=== PATIENT | male | born 2000 | race Two or more races ===

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

== ENCOUNTER 2021-01-08 16:34 | Emergency (ER) | payer SELFPAY ==
[~2021-01-08] VITALS: Ht 170.2 cm; Wt 86.0 kg
[2021-01-08 17:55] VITALS: BP 132/84
[2021-01-08] MEDS ORDERED: NEOM10DR32 AD (18:29)
--- NOTE | 2021-01-08 18:29 | PHYS DOC ---
Past Medical History Past Medical History: Other Additional Past Medical Histor: BRADYCARDIA Past Surgical History: No Surgical History Smoking Status: Never Smoker Alcohol Use: None Drug Use: None General Adult EDM: Chief Complaint: EARACHE/EAR PAIN HPI: HPI: Patient is a 20 year old male who presents with has chronic right ear cauliflower ear that he is not been doing ears nose throat or surgeon for. But for the last 2 days he has had inner ear pain. He denies fever, nausea, vomiting, headache, dizziness, abdominal pain, neck pain, throat pain, nasal congestion. Denies any past medical history. Review of Systems: Review of Systems: Constitutional: Denies fever or chills. [] Eyes: Denies change in visual acuity. [] HENT: Denies nasal congestion or sore throat. + Right ear pain [] Respiratory: Denies cough or shortness of breath. [] Cardiovascular: Denies chest pain or edema. [] GI: Denies abdominal pain, nausea, vomiting, bloody stools or diarrhea. [] : Denies dysuria. [] Musculoskeletal: Denies back pain or joint pain. [] Integument: Denies rash. [] Neurologic: Denies headache, focal weakness or sensory changes. [] Endocrine: Denies polyuria or polydipsia. [] Lymphatic: Denies swollen glands. [] Psychiatric: Denies depression or anxiety. [] Heart Score: C/O Chest Pain: No Risk Factors: Risk Factors: DM, Current or recent (<one month) smoker, HTN, HLP, family history of CAD, obesity. Risk Scores: Score 0 - 3: 2.5% MACE over next 6 weeks - Discharge Home Score 4 - 6: 20.3% MACE over next 6 weeks - Admit for Clinical Observation Score 7 - 10: 72.7% MACE over next 6 weeks - Early Invasive Strategies Allergies: Allergies: Allergies Coded Allergies Type Severity Reaction Last Updated Verified diphenhydramine Allergy Intermediate RASH 01/08/21 Yes Physical Exam: PE: Constitutional: Well developed, well nourished, no acute distress, non-toxic appearance. [] HENT: Normocephalic, atraumatic, bilateral external ears normal, oropharynx moist, no oral exudates, nose normal. Right ear with chronic cauliflower ear but has otitis externa examination. Ear canal is very swollen. [] Eyes: PERRLA, EOMI, conjunctiva normal, no discharge. [] Neck: Normal range of motion, no tenderness, supple, no stridor. [] Cardiovascular:Heart rate regular rhythm, no murmur [] Lungs & Thorax: Bilateral breath sounds clear to auscultation [] Abdomen: Bowel sounds normal, soft, no tenderness, no masses, no pulsatile masses. [] Skin: Warm, dry, no erythema, no rash. [] Back: No tenderness, no CVA tenderness. [] Extremities: No tenderness, no cyanosis, no clubbing, ROM intact, no edema. [] Neurologic: Alert and oriented X 3, normal motor function, normal sensory function, no focal deficits noted. [] Psychologic: Affect normal, judgement normal, mood normal. [] Current Patient Data: Vital Signs: Vital Signs Date Time Temp Pulse Resp B/P (MAP) Pulse Ox O2 Delivery O2 Flow Rate FiO2 01/08/21 17:55 98.4 72 16 132/84 98 Room Air 98.4 EKG: EKG: [] Radiology/Procedures: Radiology/Procedures: [] Course & Med Decision Making: Course & Med Decision Making Pertinent Labs and Imaging studies reviewed. (See chart for details) See HPI. Alert and oriented x4. Ambulatory steady gait. Speaks in full clear sentences. No mastoid tenderness or swelling. Skin pink warm and dry. Tympanic intact. Pharmacy is out of neomycin otic solution for the ear so ear wick is in place. Patient to get prescription at pharmacy. [] Dragon Disclaimer: Dragon Disclaimer: This electronic medical record was generated, in whole or in part, using a voice recognition dictation system. Departure Departure Impression: Primary Impression: Otitis externa Qualified Codes: H60.391 - Other infective otitis externa, right ear Disposition: HOME / SELF CARE / HOMELESS Condition: STABLE Referrals: NO PCP (PCP) PRAKASH BRANDON MD Patient Instructions: Otitis Externa Additional Instructions: Follow-up with an ENT doctor. Use medication as prescribed. Take ibuprofen for any pain. The ear wick will fall out on its own. Scripts Neomycin/Polymyxin B Sulf/Hc ([id number] EAR SUSP) 10 Ml Drops.susp 3 DROP AD TID for 5 Days, #10 ML 0 Refills Prov: FRANCESCA WOODS [employer] REPA[employer]ER 01/08/21 FRANCESCA WOODS APRN Jan 08, 2021 18:29
[2021-01-08] MEDS ORDERED: NEOMYCIN/POLYMYXIN/HC OTIC SUSPENSION 10ML BOTTLE. AD ONE (18:30)
== END 2021-01-08 18:56 | disposition home or self-care (01) ==
LOC: ER 16:34
DX: H60.391 Other infective otitis externa, right ear (principal)
CPT/HCPCS: 99283-25